=== PATIENT | female | born 1975 ===

== ENCOUNTER 2022-12-03 07:39 | Emergency (ER) | payer MEDICAID ==
[~2022-12-03] VITALS: Ht 165.1 cm; Wt 83.6 kg
[2022-12-03] MEDS ORDERED: NEURONTIN600 MG/TAB PO (07:57)
[2022-12-03] MEDS ORDERED: CELEXA40 MG PO (07:57)
[2022-12-03] MEDS ORDERED: SEROQUEL 2525 MG/TAB PO (07:58)
[2022-12-03 08:43] LABS: COLLECTION METHOD CLEAN CATCH
[2022-12-03 09:04] LABS: SQUAMOUS EPITHELIAL 0-2 /hpf (0-10); URINE BACTERIA None Seen /hpf (NONE SEEN); URINE RBC >50 /hpf (0-2)
[2022-12-03 09:06] LABS: URINE APPEARANCE Cloudy (CLEAR/HAZY); URINE COLOR Yellow (YELLOW); URINE PROTEIN(semi-quant) Negative (NEGATIVE)
[2022-12-03 09:07] LABS: URINE BLOOD 3+ (NEGATIVE); URINE GLUCOSE Negative (NEGATIVE); URINE KETONE Negative (NEGATIVE); URINE NITRATE Negative (NEGATIVE); URINE UROBILINOGEN 0.2 (NEGATIVE)
[2022-12-03 09:15] LABS: TRICYCLIC ANTIDEPRESS URINE NEGATIVE
[2022-12-03 10:02] LABS: BASO % 0.6 % (0.0-2.0); EOS # 0.1 K/mm3 (0.0-0.7); EOS % 0.8 % (0.0-4.0); GRAN # 5.3 K/mm3 (1.4-6.5); GRAN % 82.6 % (42.2-75.2); HEMATOCRIT 38.9 % (37.0-47.0); HEMOGLOBIN 13.5 g/dl (12.5-16.0); LYMPH # 0.6 K/mm3 (1.2-3.4); LYMPH % 9.3 % (20.0-51.0); MEAN CELL VOLUME 96 fl (80.0-100.0); MEAN CORPUSCULAR HEMOGLOBIN 33 pg (27-31); MEAN CORPUSCULAR HGB CONC 35 g/dl (33.0-37.0); MEAN PLATELET VOLUME 10.9 fl (7.4-10.4); MONO # 0.4 K/mm3 (0.1-0.6); MONO % 6.4 % (1.7-9.3); PLATELET COUNT 148 K/mm3 (130-400); RED BLOOD COUNT 4.06 M/mm3 (4.10-5.30); REDCELL DISTRIBUTION WIDTH-CV 12.1 % (11.5-14.5)
[2022-12-03 10:14] LABS: ALANINE AMINOTRANSFERASE 22 U/L (0-55); ALBUMIN 3.8 gm/dL (3.5-5.0); ALKALINE PHOSPHATASE 70 U/L (40-150); ANION GAP 8 mmol/L (7-16); AST,SGOT 24 U/L (5-34); BILIRUBIN,TOTAL 0.4 mg/dL (0.2-1.2); BLOOD UREA NITROGEN 12 mg/dL (7-19); CARBON DIOXIDE 24 mmol/L (22-29); CHLORIDE 108 mmol/L (98-107); CREATININE, serum 0.81 mg/dL (0.57-1.11); GLUCOSE 86 mg/dL (70-99); POTASSIUM 3.9 mmol/L (3.5-4.5); SODIUM 140 mmol/L (136-145); TOTAL PROTEIN 7.2 gm/dL (6.2-8.1)
[2022-12-03 10:16] LABS: ACETAMINOPHEN < 1.0 ug/mL (10-30); ALCOHOL(ethanol),MEDICAL < 10 mg/dL (0-10); SALICYLATE < 5.0 mg/dL (15.0-30.0)
[2022-12-03 10:34] LABS: TSH w REFLEX 2.679 uIU/mL (0.350-4.940)
[2022-12-03] MEDS ORDERED: VITAMIN D 50,1.25 MG PO (12:39)
[2022-12-03] MEDS ORDERED: VITAMIN C500 MG PO (12:39)
[2022-12-03] MEDS ORDERED: THE MEDICINE SH1 POW (12:40)
[2022-12-03] MEDS ORDERED: REGULOID0.4 GM PO (12:42)
[2022-12-03] MEDS ORDERED: CRANBERRY250 MG PO (12:43)
[2022-12-03] MEDS ORDERED: NATURAL MAGNES200 MG PO (12:44)
[2022-12-03] MEDS ORDERED: METHYLFOLATE1 EAC1 PO (12:46)
[2022-12-03 19:11] VITALS: BP 100/67; PULSE 64; TEMP 97.8
== END 2022-12-03 19:18 ==
LOC: COL.ER 07:39
PROVIDERS: Emergency Medicine
DX: F41.9 Anxiety disorder, unspecified (principal); Z79.899 Other long term (current) drug therapy; Z28.310 Unvaccinated for COVID-19

== ENCOUNTER 2023-07-25 16:18 | Emergency (ER) | payer MEDICAID ==
[~2023-07-25] VITALS: Ht 165.1 cm; Wt 91.8 kg
[~2023-07-25 16:18] MED LIST: CELEXA40 MG PO; CRANBERRY250 MG PO; FLEXERIL 1010 MG/TAB PO; METHYLFOLATE1 EAC1 PO; NATURAL MAGNES200 MG PO; NEURONTIN600 MG/TAB PO; REGULOID0.4 GM PO; SEROQUEL 2525 MG/TAB PO; THE MEDICINE SH1 POW; VITAMIN C500 MG PO; VITAMIN D 50,1.25 MG PO
[2023-07-25 16:56] LABS: COLLECTION METHOD CLEAN CATCH
[2023-07-25 17:15] LABS: BASO # 0.1 K/mm3 (0.0-0.2); BASO % 0.7 % (0.0-2.0); EOS # 0.1 K/mm3 (0.0-0.7); EOS % 0.8 % (0.0-4.0); GRAN # 5.3 K/mm3 (1.4-6.5); GRAN % 75.1 % (42.2-75.2); HEMATOCRIT 42.5 % (37.0-47.0); HEMOGLOBIN 14.9 g/dl (12.5-16.0); LYMPH % 14.2 % (20.0-51.0); MEAN CELL VOLUME 95 fl (80.0-100.0); MEAN CORPUSCULAR HEMOGLOBIN 33 pg (27-31); MEAN CORPUSCULAR HGB CONC 35 g/dl (33.0-37.0); MONO # 0.6 K/mm3 (0.1-0.6); MONO % 8.9 % (1.7-9.3); PLATELET COUNT 201 K/mm3 (130-400); RED BLOOD COUNT 4.49 M/mm3 (4.10-5.30)
[2023-07-25 17:21] LABS: TRICYCLIC ANTIDEPRESS URINE NEGATIVE (NEGATIVE)
[2023-07-25 17:24] LABS: PH 5.5 (5.0-8.5); URINE APPEARANCE Hazy (CLEAR/HAZY); URINE BACTERIA Moderate /hpf (NONE SEEN); URINE BLOOD Negative (NEGATIVE); URINE COLOR Yellow (YELLOW); URINE GLUCOSE Negative (NEGATIVE); URINE KETONE Negative (NEGATIVE); URINE NITRATE Negative (NEGATIVE); URINE PROTEIN(semi-quant) Negative (NEGATIVE); URINE RBC 0-2 /hpf (0-2); URINE UROBILINOGEN 0.2 E.U/dL (0.2-1.0)
[2023-07-25] MEDS ORDERED: BRINTELLIX10 PO (17:33)
[2023-07-25] MEDS ORDERED: ZYPREXA 5MG5 MG PO (17:34)
[2023-07-25] MEDS ORDERED: ATIVAN 0.50.5 MG/TAB PO (17:35)
[2023-07-25 17:40] LABS: ACETAMINOPHEN < 7.0 ug/mL (10-30); ALANINE AMINOTRANSFERASE 24 U/L (0-55); ALBUMIN 3.9 gm/dL (3.5-5.0); ALKALINE PHOSPHATASE 67 U/L (40-150); ANION GAP 12 mmol/L (7-16); AST,SGOT 20 U/L (5-34); BILIRUBIN,TOTAL 0.4 mg/dL (0.2-1.2); BLOOD UREA NITROGEN 16 mg/dL (7-19); CALCIUM 9.5 mg/dL (8.4-10.2); CARBON DIOXIDE 20 mmol/L (22-29); CHLORIDE 108 mmol/L (98-107); GLUCOSE 124 mg/dL (70-99); POTASSIUM 3.7 mmol/L (3.5-4.5); SODIUM 140 mmol/L (136-145); TOTAL PROTEIN 7.6 gm/dL (6.2-8.1)
[2023-07-25 17:45] LABS: ALCOHOL(ethanol),MEDICAL < 10 mg/dL (0-10); SALICYLATE < 5.0 mg/dL (15.0-30.0)
[2023-07-25 18:00] LABS: TSH w REFLEX 1.635 uIU/mL (0.350-4.940)
[2023-07-25] MEDS ORDERED: OLANZapine 5 MG TAB PO ONE (20:00)
[2023-07-25] MEDS ORDERED: LORazepam 0.5 MG TAB PO ONE (20:00)
[2023-07-25] MEDS ORDERED: QUEtiapine 25 MG TAB PO ONE (20:00)
[2023-07-25] MEDS ORDERED: Gabapentin 300 MG CAP PO ONE (20:15)
[2023-07-26] MEDS ORDERED: Gabapentin 300 MG CAP PO SCH (06:00)
[2023-07-26] MEDS ORDERED: OLANZapine 5 MG TAB PO SCH (06:00)
[2023-07-26 10:25] VITALS: BP 137/71; PULSE 91; TEMP 98.7
== END 2023-07-26 10:36 ==
LOC: COL.ER 16:18
PROVIDERS: Nurse Practitioner Primary Care
DX: F22 Delusional disorders (principal); Z91.040 Latex allergy status